=== PATIENT | male | born 1990 | race Hispanic/Latino ===

== ENCOUNTER 2017-05-29 21:25 | Emergency (ER) | payer SELFPAY ==
[2017-05-29 23:19] LABS: #Basophils 0.1 thou/uL (0.0-0.2); #Eosinphils 0.2 thou/uL (0.0-0.7); #Lymphocytes 2.8 thou/uL (1.20-3.40); #Monocytes 0.9 thou/uL (0.11-0.59); #Neutrophils 7.7 thou/uL (1.40-6.50); %Basophils 0.7 % (0.0-1.0); %Eosinophils 1.9 % (0.0-10.0); %Lymphocytes 23.7 % (21.0-51.0); %Monocytes 7.8 % (0.0-10.0); Hematocrit 38.5 % (42.0-52.0); Mean Platelet Volume 7.9 fL (7.4-10.4); White Blood Cell (WBC) Count 11.7 thou/uL (4.8-10.8)
[2017-05-29 23:35] LABS: ALT (SGPT) 19 U/L (8-55); AST (SGOT) 13 U/L (5-34); Alkaline Phosphatase 463 U/L (40-150); Anion Gap 11 mmol/L (10-20); BUN (Urea Nitrogen) 11 mg/dL (8.9-20.6); Bilirubin, Total 0.2 mg/dL (0.2-1.2); Calc. Creatinine Clearance 0 mL/min (70-130); Calcium 9.7 mg/dL (7.8-10.44); Carbon Dioxide 29 mmol/L (22-29); Chloride 103 mmol/L (98-107); Estimated GFR-MDRD Greater than 90; Globulin 3.3 g/dL (2.4-3.5); Protein, Total 7.4 g/dL (6.0-8.3)
--- NOTE | 2017-06-14 15:00 | EKG ---
Test Reason : DIAGNOSING PURPOSES Blood Pressure : / mmHG Vent. Rate : 074 BPM Atrial Rate : 074 BPM P-R Int : 160 ms QRS Dur : 098 ms QT Int : 368 ms P-R-T Axes : 044 077 045 degrees QTc Int : 408 ms Normal sinus rhythm with sinus arrhythmia Incomplete right bundle branch block Nonspecific ST abnormality Abnormal ECG Confirmed by GATITO MELARA D.O. ([id number]), publications editor CM RAYMOND ([id number]) on 06/14/2017 2:59:22 PM Referred By: Confirmed By:GATITO MELARA D.O.
== END 2017-05-30 00:21 | disposition home or self-care (01) ==
LOC: ERS 21:25
DX: R55 Syncope and collapse (principal); R11.2 Nausea with vomiting, unspecified; E11.9 Type 2 diabetes mellitus without complications; F17.200 Nicotine dependence, unspecified, uncomplicated; Z79.4 Long term (current) use of insulin
CPT/HCPCS: 36415; 36416; 80053; 85025; 93005